=== PATIENT | female | born 1960 | race Hispanic/Latino ===

== ENCOUNTER 2021-11-19 01:22 | Emergency (ER) | payer OTHER, MEDICARE ==
[~2021-11-19] VITALS: Ht 157.5 cm; Wt 87.1 kg
[2021-11-19 01:59] VITALS: BP 124/56
[2021-11-19 02:21] LABS: BASOPHILS % (AUTO) 0.2 % (0.0-5.0); EOSINOPHILS % (AUTO) 0.9 % (0.0-8.0); LYMPHOCYTES % (AUTO) 7.3 % (21.0-51.0); MEAN CORPUSCULAR HEMOGLOBIN 28.9 pg (27.0-33.0); MEAN CORPUSCULAR HGB CONC 32.5 g/dL (32.0-36.0); MEAN CORPUSCULAR VOLUME 88.9 fL (79-99); MONOCYTES % (AUTO) 7.9 % (3.0-13.0); NEUTROPHILS % (AUTO) 83.3 % (40.0-77.0); PLATELET COUNT (AUTO) 202 K/uL (130-400); RED CELL DISTRIBUTION WIDTH 13.2 % (11.0-15.5); WHITE BLOOD COUNT (AUTO) 12.8 K/uL (4.8-10.8)
[2021-11-19 02:29] LABS: CREATININE 0.8 mg/dL (0.5-1.5); POTASSIUM 3.2 mmol/L (3.5-5.1)
[2021-11-19 02:36] LABS: ALBUMIN 3.8 g/dL (3.5-5.0); TOTAL PROTEIN, SERUM 7.8 g/dL (6.0-8.3)
[2021-11-19 03:14] LABS: APPEARANCE,URINE CLEAR (CLEAR); BILIRUBIN,URINE NEGATIVE (NEGATIVE); COLOR,URINE YELLOW (YELLOW); GLUCOSE, URINE (UA) NEGATIVE (NEGATIVE); KETONES,URINE 15 mg/dL (NEGATIVE); LEUKOCYTE ESTERASE ,URINE SMALL (NEGATIVE); NITRATE,URINE POSITIVE (NEGATIVE); OCCULT BLOOD,URINE SMALL (NEGATIVE); PH,URINE 5.5 (5.0-8.0); PROTEIN,URINE TRACE mg/dL (NEGATIVE); UROBILINOGEN,URINE 0.2 mg/dL (0.2-1.0)
[2021-11-19 03:17] LABS: BACTERIA,URINE Many /HPF (None Seen); MUCUS,URINE Few LPF (None Seen); SQUAMOUS EPITHELIAL CELL,UR Few /HPF (0-2)
[2021-11-19] MEDS ORDERED: CEPH500B PO (03:27)
[2021-11-19] MEDS ORDERED: ONDA-104 PO (03:27)
[2021-11-19] MEDS ORDERED: DIPH1TAB PO (03:27)
[2021-11-19] MEDS ORDERED: PANTOPRAZOLE 40 MG/VIAL IVP ONE (04:00)
== END 2021-11-19 03:50 | disposition home or self-care (01) ==
LOC: EDH 01:22
DX: K52.9 Noninfective gastroenteritis and colitis, unspecified (principal); N39.0 Urinary tract infection, site not specified; E11.9 Type 2 diabetes mellitus without complications; E03.9 Hypothyroidism, unspecified; Z88.0 Allergy status to penicillin
CPT/HCPCS: 99283; 96374; 82150; 84484; 80053; 85025; 87077; 87088; 87186; 81001; 36415; 93005; C9113

== ENCOUNTER 2021-11-30 18:18 | Emergency (ER) | payer OTHER, MEDICARE ==
[~2021-11-30] VITALS: Ht 157.5 cm; Wt 85.7 kg
[~2021-11-30 18:18] MED LIST: CEPH500B PO; DIPH1TAB PO; ONDA-104 PO
[2021-11-30] MEDS ORDERED: CYCL10TA16 PO (19:52)
[2021-11-30] MEDS ORDERED: NAPR-1180 PO (19:52)
[2021-11-30] MEDS ORDERED: DIAZEPAM 5 MG TABLET PO ONE (20:00)
[2021-11-30] MEDS ORDERED: ACETAMINOPHEN 650 MG/20.3 ML UDCUP PO ONE (20:00)
[2021-11-30 20:01] VITALS: BP 142/61
== END 2021-11-30 20:11 | disposition home or self-care (01) ==
LOC: EDH 18:18
DX: U07.1 COVID-19 (principal); M43.6 Torticollis; H92.01 Otalgia, right ear; E03.9 Hypothyroidism, unspecified; E11.9 Type 2 diabetes mellitus without complications; E66.9 Obesity, unspecified; Z79.1 Long term (current) use of non-steroidal anti-inflammatories (NSAID); Z88.0 Allergy status to penicillin; Z68.34 Body mass index [BMI] 34.0-34.9, adult
CPT/HCPCS: 99283; 87635; 87804 ×2; C9803

== ENCOUNTER 2024-05-02 17:34 | Emergency (ER) | payer OTHER, MEDICARE ==
[~2024-05-02] VITALS: Ht 157.5 cm; Wt 89.8 kg
[2024-05-02 17:34] VITALS: BP 116/66
[~2024-05-02 17:34] MED LIST changes: +CYCL10TA16 PO; +NAPR-1180 PO
[2024-05-02 18:14] LABS: SARS-CoV-2, RNA, NAAT NEGATIVE SARS CoV-2 (NEGATIVE)
[2024-05-02 18:19] LABS: INFLUENZA TYPE B Negative For Type B (NEGATIVE)
[2024-05-02 18:24] LABS: INFLUENZA TYPE A Positive For Type A (NEGATIVE)
[2024-05-02 18:33] VITALS: PULSE 110; RESP 20; TEMP 102.7; O2SAT 96
[2024-05-02] MEDS ORDERED: OSEL75 PO (18:33)
[2024-05-02] MEDS ORDERED: ACET-66 PO (18:33)
[2024-05-02] MEDS ORDERED: ONDA-104 PO (18:34)
--- NOTE | 2024-05-02 18:34 | ERN ---
General Chief Complaint: Flu Symptoms Stated Complaint: FLU LIKE SYMPTOMS, FALL Time Seen by MD: 17:35 Source: patient History of Present Illness Initial Comments Patient is a 64-year-old female coming in to be evaluated after she had a fall earlier today. Per patient he nothing is hurting but he does have a cough and states he was exposed to influenza by friends of the family. Patient was alert and oriented. Allergies: Coded Allergies: Penicillins (Unverified Allergy, Unknown, 11/19/21) Home Meds Active Scripts Cyclobenzaprine HCl (Flexeril) 10 Mg Tab, 10 MG PO BID, #30 TAB Prov:RILEY STARK 11/30/21 Naproxen (Naprosyn) 500 Mg Tablet, 500 MG PO BIDPC, #60 TAB Prov:RILEY STARK 11/30/21 Diphenoxylate HCl/Atropine (Lomotil Tablet) 1 Each Tablet, 2 TAB PO TIDP PRN for DIARRHEA for 5 Days, #10 TAB 0 Refills Prov:LEON IGNACIO MD 11/19/21 Ondansetron HCl (Ondansetron HCl) 4 Mg Tablet, 4 MG PO TIDP PRN for vomiting, #20 TAB Prov:LEON IGNACIO MD 11/19/21 Cephalexin Monohydrate (Keflex) 500 Mg Cap, 500 MG PO QID for 7 Days, #28 CAP Prov:LEON IGNACIO MD 11/19/21 Past Medical History Past Medical History: Diabetes-Type II Medical History Other: Obesity Past Surgical History: Hysterectomy, Other Surgical History Other: INTESTINAL RESECTION Family History Family History: Negative Social History Social History: Negative Female( History) History: Not Applicable ROS Dictation CONSTITUTIONAL: chills, fever, no weakness, no diaphoresis, no malaise. HEAD/FACE: No signs of trauma. EENT: No eye pain, no blurred vision, no tearing, no double vision, no ear pain, no ear discharge, no nose pain, no nasal congestion, no throat pain, no throat swelling, no mouth pain. RESPIRATORY: No cough, no orthopnea, no SOB, no stridor, no wheezing. CARDIOVASCULAR: No chest pain, no edema, no palpitations, no syncope. GASTROINTESTINAL/ABDOMINAL: No abdominal pain, no constipation, no diarrhea, no nausea, no vomiting. GENITOURINARY: No abnormal discharge, no dysuria, no frequent urination, no he maturia. No complaints of pain in the genitals. MUSCULOSKELETAL: No back pain, no gout, no joint pain, no joint swelling, no m uscle pain, no muscle stiffness, no neck pain. INTEGUMENTARY: No change in color, no change in hair/nails, no dryness, no lesi on, no lumps, no rash. NEUROLOGICAL/PSYCH: No anxiety, not depressed, no emotional problem, no headache, no numbness, no pre-existing deficit, no history of seizures, no tremors, no weakness. HEMATOLOGIC/LYMPHATIC: Not anemic, no history of blood clots, no apparent bleeding, no bruising, glands not swollen. All Systems Negative, Except as Noted. Physical Exam Physical Exam Dictation VITAL SIGNS: Reviewed. GENERAL APPEARANCE: Alert, oriented x3, no acute distress, obese. HEAD AND FACE: Non-traumatic. EYES: PERRL, pink conjunctivas, eyelid no trauma, anterior chamber clear. EARS: Pinnas intact and no signs of trauma or erythema. Ear canals clear and no discharge. TMs no erythema. NOSE: No discharge, no bleeding. OROPHARYNX: Mouth normal, teeth no caries, tongue pink. Pharynx clear, no erythema. Tonsils no exudates, no abscesses noted. Mucous membrane moist. NECK: Supple, non-tender, no thyromegaly, no masses, no JVD, no bruits. BREAST: Deferred. CHEST: No tenderness, no crepitus, no paradoxical movement, no retractions. LUNGS: Clear, well-ventilated, symmetric, no rales, no wheezing, no rhonchi, no stridor, good breath sounds bilaterally. HEART: Regular rate, regular rhythm, no murmur, no gallops. VASCULAR: No peripheral edema. ABDOMEN: Soft, positive bowel sounds, nondistended, no guarding, nontender, no rebound, no masses no hepatomegaly, no splenomegaly, no Schmidt's sign, no hernias. RECTAL: Deferred. GENITAL: Deferred. NEUROLOGICAL: Normal speech, gross motor function intact, gross sensory function intact. MUSCULOSKELETAL: Neck nontender, full range of motion, back nontender, full range of motion. EXTREMITIES: Nontender, full range of motion. SKIN: Color pink, dry, no turgor, no rash, no lacerations, no abrasions, no contusions. LYMPHATICS: Deferred. Results Laboratory and Microbiology Lab and Micro Result Laboratory Tests Test 05/02/24 17:36 Influenza Type A Antigen Positive For Type A Influenza Type B Antigen Negative For Type B SARS-CoV-2, RNA, NAAT NEGATIVE SARS CoV-2 Labs Reviewed?: Yes MDM MDM: Differential diagnosis: Influenza a, COVID, strep Patient is a 64-year-old female coming in to be evaluated for URi symptoms. Per patient she was exposed to influenza by family members. Upon evaluation in triage patient did have a fever was given antipyretics patient did come up positive for influenza A. Patient states that she fell but currently does not have any complaints. ED Course Orders Procedure Category Date Status Time Influenza Type A & B, LAB 05/02/24 Complete Rapid 17:40 Covid Rna Naat LAB 05/02/24 Complete 17:40 Vital Signs Date Time Temp Pulse Resp B/P (MAP) Pulse Ox O2 Delivery O2 Flow Rate FiO2 05/02/24 17:34 103.5 113 20 116/66 Room Air 0 DX & DISP Disposition: Discharge Departure Impression: Primary Impression: Influenza A Condition: Stable Scripts Ondansetron HCl (Ondansetron HCl) 4 Mg Tablet 1 TAB PO Q4HPRN PRN for nausea/vomiting for 3 Days, #18 TAB 0 Refills Prov: BRITTA KEITH MD 05/02/24 Acetaminophen (Tylenol) 500 Mg Tab 1 TAB PO Q6HPRN PRN for pain or fever for 5 Days, #30 TAB 0 Refills Prov: BRITTA KEITH MD 05/02/24 Oseltamivir Phosphate (Tamiflu) 75 Mg Cap 1 CAP PO BID for 5 Days, #10 CAP 0 Refills Prov: BRITTA KEITH MD 05/02/24 Additional Instructions: FOLLOW-UP WITH PRIMARY CARE PROVIDER IN 1 TO 2 DAYS. TAKE MEDICATIONS DIRECTED HERE IN THE EMERGENCY ROOM. OKAY TO CONTINUE HOME MEDICATIONS UNLESS OTHERWISE DISCUSSED DURING YOUR VISIT IN THE EMERGENCY ROOM TODAY. RETURN TO YOUR NEAREST EMERGENCY ROOM IF SYMPTOMS WORSEN OR IF THERE IS NO IMPROVEMENT. CALL 911 IF YOU NEED IMMEDIATE ASSISTANCE. TAKE TYLENOL [id number] NEEDED AND IF NO CONTRAINDICATIONS ARE PRESENT. INCREASE ORAL HYDRATION. A WOUND CULTURE OR URINE CULTURE WAS ORDERED HERE IN THE EMERGENCY ROOM DEPARTMENT PLEASE FOLLOW-UP WITH PRIMARY CARE PROVIDER AND ADVISE THEM TO GET REPEAT PORTS FROM OUR FACILITY. IF YOU HAD ANY LILIANA WRAP/SPLINTS THAT WERE APPLIED HERE, PLEASE DO NOT REMOVE THEM UNTIL YOU SEE YOUR PRIMARY CARE OR SPECIALTY. Referrals: Referrals: DILMA JONES (PCP) Time of Disposition: 18:32 BRITTA KEITH MD May 02, 2024 18:34
--- NOTE | 2024-05-02 18:45 | NUR ---
ASSUMED CARE AT THIS TIME. PT C/O FLULIKE SYMPTOMS:FEVER,COUGH,NAUSEA,AND CHILLS.
[2024-05-02] MEDS: ibuPROFEN 600 MG TABLET PO ONE (18:46)
[2024-05-02] MEDS: ondanSETRON ODT 4MG TAB SL ONE (18:46)
[2024-05-02 18:47] VITALS: TEMP 102
[2024-05-02] MEDS: acetaMINOPHEN 500 MG TABLET PO ONE (18:47)
== END 2024-05-02 19:07 | disposition home or self-care (01) ==
LOC: EDH 17:34
DX: J10.1 Influenza due to other identified influenza virus with other respiratory manifestations (principal); E11.9 Type 2 diabetes mellitus without complications; E66.9 Obesity, unspecified; Z88.0 Allergy status to penicillin; Z90.710 Acquired absence of both cervix and uterus; Z20.822 Contact with and (suspected) exposure to COVID-19
CPT/HCPCS: 87635; 87804; 87880; 99284